=== PATIENT | male | born 1970 | race Caucasian/White ===

== ENCOUNTER 2023-05-01 18:09 | Inpatient (IN) | payer OTHER, SELFPAY ==
--- NOTE | ~2023-05-01 | CT_ITS ---
EXAMINATION: CT femur LT w IV con CLINICAL INFORMATION: Left leg infection. Rule out abscess. COMPARISON: None. TECHNIQUE: Multidetector volumetric imaging of the left femur performed after administration of 85 mL of Omnipaque 350 IV contrast. Coronal and sagittal reformatted images are obtained and reviewed. This CT examination was performed using dose optimization techniques as appropriate, variously including the following: *Automated exposure control *Adjustment of mA and/or kV according to patient size (this includes techniques or standardized protocols for targeted exams where dose is matched to indication/reason for exam; i.e. extremities or head) *Use of iterative reconstruction technique DLP: 406 mGy-cm FINDINGS: There is no fracture. Alignment maintained at the hip and knee. No cortical disruption. No osseous lesion. No osseous erosion. There is superficial edema in the posterior subcutaneous fat spanning from the mid thigh to the level of the knee. No fluid collection. There is mild skin thickening. No radiopaque foreign body. There is no deep extension of edema into the musculature. No soft tissue gas. No joint effusion at the knee or hip. The visualized intrapelvic structures show no acute abnormality. Colonic diverticulosis without diverticulitis. No abdominal wall hernia. No lymphadenopathy. CT/CT femur LT w IV con IMPRESSION: Superficial edema in the posterior subcutaneous fat spanning from the mid thigh to the level of the knee. No fluid collection. No soft tissue gas.
[2023-05-01 18:17] VITALS: BP 126/87; PULSE 95; RESP 18; TEMP 36.1; O2SAT 96; BMI 31.9
--- NOTE | 2023-05-01 18:17 | ED_ITS ---
HPI - General Adult General Chief complaint: Skin/Abscess/Foreign Body Stated complaint: Bug bite left leg Infected? Time Seen by Provider: 05/01/23 21:30 Source: patient Mode of arrival: ambulatory Limitations: no limitations History of Present Illness HPI narrative: Patient presents with left posterior thigh pain. Patient an insect bite a few days ago. Went to urgent care the following day was prescribed cephalexin. Patient is in had increasing redness, swelling, pain and feels like there has been drainage. Denies any fevers or chills. No nausea vomiting. The pain is moderate nature. Worse with palpation. The pain does not radiate. He is not sure what has been draining entirely but feels wet it substance going down his leg. Patient denies any other injuries, evidence of infection. Patient has been compliant with his medications. Patient denies history of diabetes. Related Data Home Medications Medication Instructions Recorded Confirmed buprenorphine 8 mg-naloxone 2 mg 10 mg sublingual BID 05/02/23 05/02/23 sublingual film (Suboxone) cephalexin 500 mg capsule 500 mg PO TID 05/02/23 05/02/23 lorazepam 1 mg tablet 1 mg PO DAILY PRN Anxiety 05/02/23 05/02/23 quetiapine 100 mg tablet 300 mg PO BEDTIME 05/02/23 05/02/23 Allergies Allergy/AdvReac Type Severity Reaction Status Date / Time No Known Allergies Allergy Verified 05/01/23 18:16 Review of Systems Review of Systems: CONSTITUTIONAL: Denies weight loss, fever and chills. HEENT: Denies changes in vision and hearing. RESPIRATORY: Denies SOB and cough. CV: Denies palpitations no CP. GI: Denies abdominal pain, nausea, vomiting and diarrhea. : Denies dysuria and urinary frequency. MSK: Denies myalgia and joint pain. SKIN: Denies rash and pruritus. NEUROLOGICAL: Denies headache and syncope. PSYCHIATRIC: Denies recent changes in mood. Denies anxiety and depression. All other ROS are negative unless in HPI PMFSH Past Medical History Medical History Mood disorder Opioid use Social History Social History Alcohol intake: never Patient Tobacco Use Status: Former Tobacco user Smoked in Last 30 Days: No Use of substances other than those prescribed or required for medical reasons: No Have you been hit, kicked, punched, or otherwise hurt by someone within the past year? If so, by whom?: No Is there a partner from a previous relationship who is making you feel unsafe now?: No Are you made to feel afraid or neglected: No Advance Directives: No Advance Directives Information Provided: No Do you have thoughts of harming others: None Do you have a plan to hurt others: No Plan Recently lost weight without trying: No Nutrition Risks: No Nutritional Risk Physical Exam ED Vital Signs: Vital Signs - 24 hr 05/01/23 18:17 05/01/23 21:12 Temperature 96.9 F 98.1 F Pulse Rate 95 80 Respiratory Rate 18 18 Blood Pressure 126/87 114/71 Pulse Oximetry 96 99 Oxygen Delivery Method Room Air Room Air BMI result Body Mass Index 31.9 GEN: Well developed, no acute distress, alert, oriented HEENT: Normocephalic, atraumatic, normal external ears, nose appears normal, no oropharyngeal edema or exudates Eyes: Normal to appearance Neck: Supple, no lymphadenopathy Respiratory: Talks in complete sentences, no respiratory distress, clear to auscultation bilaterally Cardiovascular: Regular rate and rhythm, no murmurs rubs or gallops Abdomen: Soft, nontender, nondistended, no guarding, no rebound Back: No CVA tenderness Extremities: No clubbing cyanosis or edema Neurologic: No focal neurologic deficits, cranial nerves 2-12 intact, strength is 5/5 bilaterally Skin: No rash, cellulitic changes the posterior leg, indurated, evidence of drainage with skin ulceration. No definitive abscess appreciated, no fluctuance surfaces. Course Course Course Narrative: This is a rapid medical exam: Additional HPI, ROS, PE not included below will be deferred to primary provider. Patient is a 53-year-old male presenting to the emergency department with worsening cellulitis to his left posterior upper leg. States he noted an area which he believed to be a bug bite on Friday. Was seen at urgent care Friday and started on Keflex 500mg TID x 10 days but states symptoms have worsened instead of improved. Denies fevers but states I just don't feel right. Patient has significant erythema to left posterior upper leg not fully visualized in triage due to privacy concerns. Patient reports area was draining dark colored fluid today. Plan: labs including cultures and lactic Reevaluation(s) Reevaluation #1: Dr. Israel aware of patient's impending admission. Time: 22:06 Reevaluation #2: Dr. Tobin to assume care pending CT resuls Time: 22:07 Medications Administered Generic Name Dose Route Start Last Admin Trade Name Freq PRN Reason Stop Dose Admin Acetaminophen 650 mg 05/01/23 22:32 05/01/23 23:59 Acetaminophen 325 Mg Tablet PO 650 mg Q6H PRN Administration Pain, Mild (Pain Scale 1-3) Buprenorphine/Naloxone 1 film 05/02/23 11:30 05/02/23 11:25 Buprenorphine/Naloxone 8/2 Mg Film SUBLINGUAL 1 film BID SARAI Administration Enoxaparin Sodium 40 mg 05/01/23 22:45 05/01/23 23:58 Enoxaparin Sodium 40 Mg/0.4 Ml Syringe SUBCUT 40 mg Q24H SARAI Administration Vancomycin HCl 1,250 mg/ 250 mls @ 166.667 mls/hr 05/02/23 10:00 05/02/23 12:25 Sodium Chloride IV Infused Q12H SARAI Infusion Lorazepam 1 mg 05/02/23 11:19 05/02/23 11:37 Lorazepam 1 Mg Tablet PO 1 mg DAILY PRN Administration Anxiety Nicotine 14 mg 05/02/23 13:30 05/02/23 14:22 Nicotine 14 Mg Patch.[id number] TRANSDERMA Not Given DAILY SARAI Sodium Chloride 3 ml 05/02/23 00:00 05/02/23 10:54 0.9 % Sodium Chloride Flush 3 Ml Syringe IVFLUSH Not Given QSHIFT SARAI Discontinued Medications Generic Name Dose Route Start Last Admin Trade Name Freq PRN Reason Stop Dose Admin Piperacillin Sod/Tazobactam 50 mls @ 100 mls/hr 05/01/23 21:26 05/02/23 09:09 Sod 3.375 gm/ Sodium Chloride IV 05/01/23 21:55 Infused ONCE ONE Infusion Vancomycin HCl 2,000 mg in 500 mls @ 250 mls/hr 05/01/23 21:31 05/02/23 09:09 Vancomycin/Ns IV 05/01/23 23:30 Infused ONCE ONE Infusion Iohexol 100 ml 05/01/23 22:00 05/01/23 22:01 Iohexol 350 Mg/Ml 100 Ml Infus..Btl IV 05/01/23 22:01 85 ml ONCE ONE Administration Medical Decision Making Medical Decision Making [facility] Narrative: 53-year-old male presents with cellulitis and possible abscess versus early phlegmonous changes the posterior leg. Patient has been on 2 days antibiotics. However, the symptoms are getting significantly worse. Has no fevers or chills. Doubt sepsis. He has no evidence of end-organ damage. He is not tachycardic. Will provide patient with Zosyn and vancomycin to broaden his antibiotic coverage. Differential diagnosis includes cellulitis, abscess, phlegmon. Patient will need a CT scan of the lower extremity to rule out abscess and potentially drainable fluid collection. Patient understands that he will need to be admitted for failure to a respond to outpatient medications. Differential Diagnosis Differential Diagnoses: The differential diagnosis associated with the presentation includes (See above) Admission/Observation Consideration of admission/observation: Escalation of care including admission/observation considered Consult Healthcare Provider Management of the patient was discussed with: Hospitalist Lab Data [facility] Lab Attestation statement: I reviewed the patient's lab results. 05/01/23 18:35 05/01/23 18:35 Labs: Lab Results 05/01/23 05/01/23 05/01/23 Range/Units 18:35 18:35 18:35 WBC 11.2 H (4.8-10.8) X10*3/uL RBC 4.18 L (4.60-5.80) X10*6/uL Hgb 12.4 L (14.0-18.0) g/dl Hct 36.6 L (42.0-52.0) % MCV 87.6 (80.0-98.0) fL MCH 29.7 (27.0-33.0) pg MCHC 33.9 (31.0-36.0) g/dl RDW 12.5 (11.0-16.0) % Plt Count 292 (160-400) X10*3/uL MPV 11.1 (9.4-12.4) fL Immature Gran % (Auto) 0.6 H (0.0-0.4) % Neut % (Auto) 77.0 H (45-73) % Lymph % (Auto) 14.4 L (20-40) % [place] % (Auto) 7.1 (2-11) % Eos % (Auto) 0.6 (0-4) % Baso % (Auto) 0.3 (0-2) % Lymph # (Auto) 1.6 (1.2-4.9) X10*3/uL [place] # (Auto) 0.8 (0.1-1.2) X10*3/uL Eos # (Auto) 0.1 (0.0-0.4) X10*3/uL Baso # (Auto) 0.0 (0.0-0.2) X10*3/uL Abs Immat Gran (auto) 0.07 H (0.00-0.03) X10*3/uL Absolute Neuts (auto) 8.6 H (2.0-8.3) x10*3/uL Absolute Nucleated RBC 0.000 (0.0-0.012) X10*3/uL Nucleated RBC % (auto) 0.0 (0.0-0.2) /100WBC Sodium 140 (135-145) mmol/L Potassium 4.2 (3.3-5.1) mmol/L Chloride 101 (96-108) mmol/L Carbon Dioxide 25 (22-29) mmol/L Anion Gap 18 (12-20) BUN 13 (9-16) mg/dL Creatinine 0.89 (0.5-1.4) mg/dL Estim Creat Clear Calc 123.8 Estimated GFR > 60 Random Glucose 103 (60-115) mg/dL Lactic Acid 0.9 (0.5-2.0) mmol/L Calcium 9.6 (8.4-10.2) mg/dL Total Bilirubin 0.3 (0.0-1.0) mg/dL AST 31 (5-37) U/L ALT 79 H (0-40) U/L Alkaline Phosphatase 148 H (39-117) U/L Total Protein 8.3 H (6.5-8.0) g/dL Albumin 4.5 (3.5-5.0) g/dL Independent Interpretation I performed an independent interpretation of an: CT Scan Radiology Impression Discussion of test interpretation with radiology: I have reviewed the radiologist's reading. Prescription Management I considered prescription management with: Pain Medication and Antibiotic Discharge Plan Discharge Clinical Impression: Cellulitis Patient Disposition: Admitted As Inpatient Interventions: Admission Worksheet (ED) Last Done: 05/02/23 11:25 Discharge Date/Time: 05/02/23 11:26
[2023-05-01 18:40] LABS: MANUAL DIFF FLAG NO
[2023-05-01 18:43] LABS: Basophils Percent Auto 0.3 % (0-2); Eosinophils Absolute Auto 0.1 X10*3/uL (0.0-0.4); Eosinophils Percent Auto 0.6 % (0-4); Hematocrit 36.6 % (42.0-52.0); Hemoglobin 12.4 g/dl (14.0-18.0); Imm Gran Abs Auto 0.07 X10*3/uL (0.00-0.03); Imm Gran Pct Auto 0.6 % (0.0-0.4); Lymphocytes Absolute Auto 1.6 X10*3/uL (1.2-4.9); Lymphocytes Percent Auto 14.4 % (20-40); Mean Corpuscular HGB Conc 33.9 g/dl (31.0-36.0); Mean Corpuscular Hemoglobin 29.7 pg (27.0-33.0); Mean Corpuscular Volume 87.6 fL (80.0-98.0); Mean Platelet Volume 11.1 fL (9.4-12.4); Monocytes Absolute Auto 0.8 X10*3/uL (0.1-1.2); Monocytes Percent Auto 7.1 % (2-11); Neutrophils Absolute Auto 8.6 x10*3/uL (2.0-8.3); Platelet Count 292 X10*3/uL (160-400); Red Blood Count 4.18 X10*6/uL (4.60-5.80); Red Cell Distribution Width 12.5 % (11.0-16.0); White Blood Count 11.2 X10*3/uL (4.8-10.8)
[2023-05-01 18:55] LABS: Lactic Acid 0.9 mmol/L (0.5-2.0)
[2023-05-01 19:00] LABS: Alanine Aminotransferase 79 U/L (0-40); Albumin Level 4.5 g/dL (3.5-5.0); Alkaline Phosphatase 148 U/L (39-117); Anion Gap 18 (12-20); Aspartate Amino Transferase 31 U/L (5-37); Bilirubin Total 0.3 mg/dL (0.0-1.0); Blood Urea Nitrogen 13 mg/dL (9-16); Calcium 9.6 mg/dL (8.4-10.2); Carbon Dioxide 25 mmol/L (22-29); Chloride 101 mmol/L (96-108); Creatinine Clr Calc Pharmacy 123.8; Estimated Glomerular Filt Rate > 60; Glucose Random 103 mg/dL (60-115); Potassium 4.2 mmol/L (3.3-5.1); Sodium 140 mmol/L (135-145); Total Protein 8.3 g/dL (6.5-8.0)
[2023-05-01 21:12] VITALS: BP 114/71; PULSE 80; RESP 18; TEMP 36.7; O2SAT 99
[2023-05-01] MEDS: Piperacillin Sodium/Tazobactam 3.375 GM in 0.9 % Sodium Chloride 50 ML IV (21:39)
[2023-05-01] MEDS: iohexoL 350 MG/ML 100 ML INFUS..BTL IV (22:01)
[2023-05-01] MEDS: vancomycin/NS 2,000 MG/500 ML PLAST..BAG 250 MG IV (22:26)
--- NOTE | 2023-05-01 22:33 | PM.IMHP ---
History of Present Illness Date of Service: 05/01/23 Chief Complaint: Leg infection This is a 53-year-old male with pertinent history of opioid use disorder on Suboxone, mood disorder who presents to the emergency department for evaluation of left lower extremity swelling, redness and pain. Patient states he 1st noticed 3 days prior to presentation. It was a bump that started as an insect bite and was very itchy located in the posterior aspect of his left leg. Patient scratched and the redness, swelling progressed. Also noticed drainage. Patient was started on Keflex 2 days prior to presentation. He states that the antibiotic is not helping and the infection is spreading. Denies fever, chills, chest discomfort, palpitations, shortness of breath, abdominal pain, changes in urinary or bowel habits. In the emergency department, imaging negative for fluid collection Review of Systems Constitutional: Constitutional: Reports no additional constitutional complaints Cardiovascular: Cardiovascular: Reports no additional cardiovascular complaints Respiratory: Respiratory: Reports no additional respiratory complaints Gastrointestinal: Gastrointestinal: Reports no additional gastrointestinal complaints Genitourinary: Genitourinary: Reports no additional male genitourinary complaints [facility] Medical History Mood disorder Opioid use Pertinent family history: No family history of early CAD Social History Alcohol intake: never Smoked in Last 30 Days: No Use of substances other than those prescribed or required for medical reasons: No Advance Directives: No Advance Directives Information Provided: No Meds Allergies Allergy/AdvReac Type Severity Reaction Status Date / Time No Known Allergies Allergy Verified 05/01/23 18:16 Active Medications: Current Medications Vancomycin HCl (Vancomycin/Ns) 2,000 mg in 500 mls @ 250 mls/hr IV ONCE ONE Stop: 05/01/23 23:30 Last Admin: 05/01/23 22:26 Dose: 250 mls/hr Pharmacy Consult (Consult Rx Perform Med Rec) 1 each MISCELLANE ONCE PRN PRN Reason: Consult order Pharmacy Consult (Consult Rx Perform Med Rec) 1 each MISCELLANE ONCE PRN PRN Reason: Consult order Physical Exam Vital Signs and Narrative: Vital Signs: Last Vital Signs Temp 98.1 F 05/01/23 21:12 Pulse 80 05/01/23 21:12 Resp 18 05/01/23 21:12 BP 114/71 05/01/23 21:12 Pulse Ox 99 05/01/23 21:12 O2 Del Method Room Air 05/01/23 21:12 BMI result Body Mass Index 31.9 Middle-aged male lying in bed in no distress Neck supple, no JVD Regular rate and rhythm, S1-S2 heard Regular breath sounds bilaterally, no wheezing or crackles appreciated Abdomen soft nontender, no guarding, no rigidity Patient is awake, alert and oriented to self, place, time and person ; no focal motor deficit Extremity: Erythema, swelling, tenderness present in the posterior aspect of left leg with serosanguineous drainage Psych: Normal mood No pedal edema Results Labs 05/01/23 18:35 05/01/23 18:35 Labs: Laboratory Results - last 24 hr 05/01/23 05/01/23 05/01/23 18:35 18:35 18:35 MCV 87.6 MCH 29.7 MCHC 33.9 RDW 12.5 Plt Count 292 MPV 11.1 Immature Gran % (Auto) 0.6 H Neut % (Auto) 77.0 H Lymph % (Auto) 14.4 L [place] % (Auto) 7.1 Eos % (Auto) 0.6 Baso % (Auto) 0.3 Lymph # (Auto) 1.6 [place] # (Auto) 0.8 Eos # (Auto) 0.1 Baso # (Auto) 0.0 Abs Immat Gran (auto) 0.07 H Absolute Neuts (auto) 8.6 H Absolute Nucleated RBC 0.000 Nucleated RBC % (auto) 0.0 Anion Gap 18 Estim Creat Clear Calc 123.8 Estimated GFR > 60 Random Glucose 103 Lactic Acid 0.9 Calcium 9.6 Total Bilirubin 0.3 AST 31 ALT 79 H Alkaline Phosphatase 148 H Total Protein 8.3 H Albumin 4.5 Imaging Radiologist's Impressions: Impressions Femur CT 05/01/23 22:10 IMPRESSION: Superficial edema in the posterior subcutaneous fat spanning from the mid thigh to the level of the knee. No fluid collection. No soft tissue gas. Assessment and Plan (1) Cellulitis: Status: Acute Plan This is a 53-year-old male with pertinent history of opioid use disorder on Suboxone, mood disorder who presents to the emergency department for evaluation of left lower extremity swelling, redness and pain. #. Left lower extremity purulent cellulitis. Will admit patient and initiate empiric IV antibiotics as patient failed outpatient p.o. antibiotics. Monitor for improvement. Blood culture obtained. No fluid collection or concern for abscess on imaging #. Opioid use disorder on Suboxone #. Mood disorder. Continue Seroquel Med rec pending DVT prophylaxis: Lovenox Full code Admit as inpatient and will require two night minimum hospital stay for IV antibiotics Time Spent With Patient Time: Total time managing care of this patient today ____ minutes. Quality Stroke Does the patient have a stroke diagnosis?: No VTE Prior VTE?: No VTE Risk Level:: Medical - moderate - high VTE Device Contraindication: Treatment Not Indicated VTE Drug Contraindication: N/A - Med Ordered
--- NOTE | 2023-05-01 22:42 | PHA.PROG ---
Admission Date/Time: Indication:skin Weight in k.6 kg Adjusted body weight in K.2 [place] body weight in K.6 Obesity Dosing Indication % IBW: Obese Serum Creatinine - Last 168 Hours 05/01/23 18:35 Creatinine 0.89 Estimated CrCl and GFR - Last 168 Hours 05/01/23 18:35 Estim Creat Clear Calc 123.8 Estimated GFR > 60 Vancomycin Loading Dose: 2000mg x 1 Current Vancomycin Dosing Regimen: 1250 mg Q12H Vancomycin Monitoring using AUC goal of 400 - 600 range with trough as surrogate marker: 466 Date and Time for next Vancomycin Level to be drawn: 05/03 @0800 Pharmacist Comments on Vancomycin Plan: Vancomycin dosing will take advantage of [employer] as a clinical decision support tool that uses Bayesian modeling to calculate individual patient's pharmacokinetic parameters and forecast the patient's drug concentration time course with the target goal AUC 24 range of 400 - 600 mg/L/hr.
[2023-05-01] MEDS: Enoxaparin Sodium 40 MG/0.4 ML SYRINGE SUBCUT (23:58)
[2023-05-01] MEDS: Acetaminophen 325 MG TABLET 650 MG PO (23:59)
[2023-05-02 00:22] VITALS: BP 109/63; PULSE 79; RESP 17; TEMP 36.8; O2SAT 95
[2023-05-02 02:38] VITALS: BP 101/59; PULSE 71; RESP 17; TEMP 36.4; O2SAT 96
[2023-05-02] MEDS: 0.9 % Sodium Chloride Flush 3 ML SYRINGE IVFLUSH ×3 (03:30→22:03)
--- NOTE | 2023-05-02 03:38 | MHC.EDTECH ---
This tech assumed care of pt at 0300AM,hourly rounds completed and belongings list done,attempted to place clothes in bag pt refused and wants them in bed. RN aware
[2023-05-02 05:38] LABS: MANUAL DIFF FLAG NO
[2023-05-02 05:42] LABS: Basophils Percent Auto 0.3 % (0-2); Eosinophils Absolute Auto 0.3 X10*3/uL (0.0-0.4); Eosinophils Percent Auto 3.4 % (0-4); Hematocrit 32.3 % (42.0-52.0); Hemoglobin 10.8 g/dl (14.0-18.0); Imm Gran Abs Auto 0.04 X10*3/uL (0.00-0.03); Imm Gran Pct Auto 0.5 % (0.0-0.4); Lymphocytes Absolute Auto 2.2 X10*3/uL (1.2-4.9); Mean Corpuscular HGB Conc 33.4 g/dl (31.0-36.0); Mean Corpuscular Hemoglobin 29.5 pg (27.0-33.0); Mean Corpuscular Volume 88.3 fL (80.0-98.0); Mean Platelet Volume 11.1 fL (9.4-12.4); Monocytes Absolute Auto 0.8 X10*3/uL (0.1-1.2); Monocytes Percent Auto 10.6 % (2-11); Neutrophils Absolute Auto 4.2 x10*3/uL (2.0-8.3); Neutrophils Percent Auto 56.2 % (45-73); Platelet Count 246 X10*3/uL (160-400); Red Blood Count 3.66 X10*6/uL (4.60-5.80); Red Cell Distribution Width 12.6 % (11.0-16.0); White Blood Count 7.6 X10*3/uL (4.8-10.8)
[2023-05-02 06:11] LABS: Anion Gap 17 (12-20); Blood Urea Nitrogen 12 mg/dL (9-16); Calcium 8.6 mg/dL (8.4-10.2); Carbon Dioxide 25 mmol/L (22-29); Chloride 103 mmol/L (96-108); Creatinine Clr Calc Pharmacy 134.4; Estimated Glomerular Filt Rate > 60; Glucose Random 123 mg/dL (60-115); Potassium 3.5 mmol/L (3.3-5.1); Sodium 141 mmol/L (135-145)
[2023-05-02 06:31] VITALS: BP 109/58; PULSE 64; RESP 18; TEMP 36.6; O2SAT 98
--- NOTE | 2023-05-02 06:31 | MHC.EDTECH ---
Hourly rounds completed,vitals taken and pt is resting comfortably at this time and call barriga within reach.
--- NOTE | 2023-05-02 07:19 | PC.NURSE ---
Resumed care of patient, he is currently sleeping. No distress noted at this time. breakfast at bedside, awaiting bed placement upstairs
--- NOTE | 2023-05-02 08:26 | PHA.MEDREC ---
Pharmacy Consult ? Medication Reconciliation Pharmacy has completed the medication reconciliation. Pt was able to list medications without being lead. Matched claim history.
--- NOTE | 2023-05-02 10:36 | PC.NURSE ---
port given to M3 RN
[2023-05-02] MEDS: vancomycin HCL 1,250 MG in 0.9 % Sodium Chloride 250 ML 166.67 MG IV ×2 (10:46→22:02)
--- NOTE | 2023-05-02 10:47 | PC.NURSE ---
port given to m3 RN, pt to be transported up to [facility] transport
--- NOTE | 2023-05-02 11:20 | HO.PM.IMPN ---
Subjective Subjective Date of Service: 05/02/23 Physical Exam Vital Signs: Vital Signs: Last Vital Signs Temp 97.8 F 05/02/23 06:31 Pulse 64 05/02/23 06:31 Resp 18 05/02/23 06:31 BP 109/58 L 05/02/23 06:31 Pulse Ox 98 05/02/23 06:31 O2 Del Method Room Air 05/02/23 06:31 BMI result Body Mass Index 31.9 Objective Data Active Medications Acetaminophen (Acetaminophen 325 Mg Tablet) 650 mg PO Q6H PRN PRN Reason: Pain, Mild (Pain Scale 1-3) Last Admin: 05/01/23 23:59 Dose: 650 mg Documented By: AUBREY Enoxaparin Sodium (Enoxaparin Sodium 40 Mg/0.4 Ml Syringe) 40 mg SUBCUT Q24H [facility] Last Admin: 05/01/23 23:58 Dose: 40 mg Documented By: AUBREY Vancomycin HCl 1,250 mg/ (Sodium Chloride) 250 mls @ 166.667 mls/hr IV Q12H [facility] Last Admin: 05/02/23 10:46 Dose: 166.67 mls/hr Documented By: ALYSE Melatonin (Melatonin 3 Mg Tablet) 6 mg PO BEDTIME PRN PRN Reason: Insomnia Ondansetron HCl (Ondansetron Hcl 4 Mg/2 Ml Vial) 4 mg IVPUSH Q8H PRN PRN Reason: Nausea and Vomiting Pharmacy Consult (Consult Rx Perform Med Rec) 1 each MISCELLANE ONCE PRN PRN Reason: Consult order Pharmacy Consult (Consult Rx Vancomycin Dosing) 1 each MISCELLANE DAILY PRN PRN Reason: Consult order Sodium Chloride (0.9 % Sodium Chloride Flush 3 Ml Syringe) 3 ml IVFLUSH QSHIFT [facility] Last Admin: 05/02/23 10:54 Dose: Not Given Documented By: ASHLEY Non-Admin Reason: See Note Labs 05/02/23 05:13 05/02/23 05:13 Labs: Laboratory Results - last 24 hr 05/01/23 05/01/23 05/01/23 18:35 18:35 18:35 MCV 87.6 MCH 29.7 MCHC 33.9 RDW 12.5 Plt Count 292 MPV 11.1 Immature Gran % (Auto) 0.6 H Neut % (Auto) 77.0 H Lymph % (Auto) 14.4 L [place] % (Auto) 7.1 Eos % (Auto) 0.6 Baso % (Auto) 0.3 Lymph # (Auto) 1.6 [place] # (Auto) 0.8 Eos # (Auto) 0.1 Baso # (Auto) 0.0 Abs Immat Gran (auto) 0.07 H Absolute Neuts (auto) 8.6 H Absolute Nucleated RBC 0.000 Nucleated RBC % (auto) 0.0 Anion Gap 18 Estim Creat Clear Calc 123.8 Estimated GFR > 60 Random Glucose 103 Lactic Acid 0.9 Calcium 9.6 Total Bilirubin 0.3 AST 31 ALT 79 H Alkaline Phosphatase 148 H Total Protein 8.3 H Albumin 4.5 05/02/23 05/02/23 05/02/23 05:13 05:13 05:13 MCV 88.3 MCH 29.5 MCHC 33.4 RDW 12.6 Plt Count 246 MPV 11.1 Immature Gran % (Auto) 0.5 H Neut % (Auto) 56.2 Lymph % (Auto) 29.0 [place] % (Auto) 10.6 Eos % (Auto) 3.4 Baso % (Auto) 0.3 Lymph # (Auto) 2.2 [place] # (Auto) 0.8 Eos # (Auto) 0.3 Baso # (Auto) 0.0 Abs Immat Gran (auto) 0.04 H Absolute Neuts (auto) 4.2 Absolute Nucleated RBC 0.000 Nucleated RBC % (auto) 0.0 Anion Gap 17 Estim Creat Clear Calc 134.4 Cancelled Estimated GFR > 60 Cancelled Random Glucose 123 H Lactic Acid Calcium 8.6 D Total Bilirubin AST ALT Alkaline Phosphatase Total Protein Albumin Assessment and Plan (1) Opioid use: Status: Acute (2) Mood disorder: Status: Acute (3) Cellulitis: Status: Acute Plan This is a 53-year-old male with pertinent history of opioid use disorder on Suboxone, mood disorder who presents to the emergency department for evaluation of left lower extremity swelling, redness and pain. #.? Left lower extremity purulent cellulitis with abscess, likely staph Surgery consult for I and D. continue Vanco #.? Opioid use disorder on Suboxone #.? Mood disorder.? Continue Seroquel DVT prophylaxis:? Lovenox Full code Need for inpatient: IV Abx for abscess and cellulitis Time Spent With Patient Time: Total time managing care of this patient today ____ minutes. Quality Stroke Does the patient have a stroke diagnosis?: No VTE Prior VTE?: No VTE Risk Level:: Medical - moderate - high VTE Device Contraindication: Treatment Not Indicated VTE Drug Contraindication: N/A - Med Ordered
[2023-05-02] MEDS: Buprenorphine/Naloxone 8/2 mg FILM 1 FILM SUBLINGUAL ×2 (11:25→20:03)
[2023-05-02] MEDS: LORazepam 1 MG TABLET PO ×2 (11:37→20:33)
--- NOTE | 2023-05-02 12:27 | P.CONGS_ITS ---
History of Present Illness Consult details Consult date: 05/02/23 Requesting physician: Arsh Null Narrative: 53-year-old male patient presenting to the emergency department with a black skin lesion located in his left posterior thigh. This began as an area of redness approximately 3 days ago of uncertain etiology. 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 He was evaluated at a walk-in clinic and started on antibiotics. He reports the pain and redness increased in severity since then and subsequently returned to the emergency department for further evaluation. He has been admitted to the hospitalist service for further management. A CT of the left leg indicates area of inflammation in the subcutaneous tissue but no definite fluid collection. Review of Systems Review of Systems: Yes all other systems are reviewed and are negative Integumentary/Breasts: Skin/Breast: Reports as per HPI, Reports swelling, Reports skin ulcer and Reports sores PMFSH Past Medical History Medical History Mood disorder Opioid use Social History Social History Alcohol intake: never Patient Tobacco Use Status: Former Tobacco user Smoked in Last 30 Days: No Use of substances other than those prescribed or required for medical reasons: No Have you been hit, kicked, punched, or otherwise hurt by someone within the past year? If so, by whom?: No Is there a partner from a previous relationship who is making you feel unsafe now?: No Are you made to feel afraid or neglected: No Advance Directives: No Advance Directives Information Provided: No Do you have thoughts of harming others: None Do you have a plan to hurt others: No Plan Recently lost weight without trying: No Nutrition Risks: No Nutritional Risk Meds Allergies Allergy/AdvReac Type Severity Reaction Status Date / Time No Known Allergies Allergy Verified 05/01/23 18:16 Active Medications: Current Medications Acetaminophen (Acetaminophen 325 Mg Tablet) 650 mg PO Q6H PRN PRN Reason: Pain, Mild (Pain Scale 1-3) Last Admin: 05/01/23 23:59 Dose: 650 mg Buprenorphine/Naloxone (Buprenorphine/Naloxone 8/2 Mg Film) 1 film SUBLINGUAL BID SARAI Last Admin: 05/02/23 11:25 Dose: 1 film Enoxaparin Sodium (Enoxaparin Sodium 40 Mg/0.4 Ml Syringe) 40 mg SUBCUT Q24H [facility] Last Admin: 05/01/23 23:58 Dose: 40 mg Vancomycin HCl 1,250 mg/ (Sodium Chloride) 250 mls @ 166.667 mls/hr IV Q12H [facility] Last Infusion: 05/02/23 12:25 Dose: Infused Lorazepam (Lorazepam 1 Mg Tablet) 1 mg PO DAILY PRN PRN Reason: Anxiety Last Admin: 05/02/23 11:37 Dose: 1 mg Melatonin (Melatonin 3 Mg Tablet) 6 mg PO BEDTIME PRN PRN Reason: Insomnia Ondansetron HCl (Ondansetron Hcl 4 Mg/2 Ml Vial) 4 mg IVPUSH Q8H PRN PRN Reason: Nausea and Vomiting Pharmacy Consult (Consult Rx Perform Med Rec) 1 each MISCELLANE ONCE PRN PRN Reason: Consult order Pharmacy Consult (Consult Rx Vancomycin Dosing) 1 each MISCELLANE DAILY PRN PRN Reason: Consult order Quetiapine Fumarate (Quetiapine Fumarate 300 Mg Tablet) 300 mg PO BEDTIME [facility] Sodium Chloride (0.9 % Sodium Chloride Flush 3 Ml Syringe) 3 ml IVFLUSH QSHIFT [facility] Last Admin: 05/02/23 10:54 Dose: Not Given Home Medications Medication Instructions Recorded Confirmed Last Taken Type buprenorphine 8 mg-naloxone 2 mg 10 mg sublingual BID 05/02/23 05/02/23 05/01/23 History sublingual film (Suboxone) cephalexin 500 mg capsule 500 mg PO TID 05/02/23 05/02/23 05/01/23 History lorazepam 1 mg tablet 1 mg PO DAILY PRN Anxiety 05/02/23 05/02/23 05/01/23 History quetiapine 100 mg tablet 300 mg PO BEDTIME 05/02/23 05/02/23 04/30/23 History Physical Exam Vital Signs: Vital Signs: Last Vital Signs Temp 97.8 F 05/02/23 06:31 Pulse 64 05/02/23 06:31 Resp 18 05/02/23 06:31 BP 109/58 L 05/02/23 06:31 Pulse Ox 98 05/02/23 06:31 O2 Del Method Room Air 05/02/23 06:31 BMI result Body Mass Index 31.9 Const: General: cooperative and no acute distress Nutritional Appearance: well nourished Orientation/consciousness: patient oriented x3 Limitations: no limitations HEENT: Head: Yes normocephalic and Yes atraumatic Ears: hearing grossly normal bilaterally Resp: Effort & Inspection: normal respiratory effort, no audible wheezes, no cough and no respiratory distress Cardio: Jugular venous distension: no JVD GI: Inspection: Yes normal to inspection Skin: Other: Warm, dry, no rash Neuro: General: patient oriented x3 Extrem: Other: General: Yes no clubbing, cyanosis or edema Upper/lower leg/hip images: 1. 2 cm area of necrotic skin surrounded by a wider area of erythema, swelling, tenderness. Results Labs 05/02/23 05:13 05/02/23 05:13 Labs: Abnormal lab results 05/01/23 05/01/23 05/02/23 Range/Units 18:35 18:35 05:13 WBC 11.2 H (4.8-10.8) X10*3/uL RBC 4.18 L 3.66 L (4.60-5.80) X10*6/uL Hgb 12.4 L 10.8 L (14.0-18.0) g/dl Hct 36.6 L 32.3 L (42.0-52.0) % Immature Gran % (Auto) 0.6 H 0.5 H (0.0-0.4) % Neut % (Auto) 77.0 H (45-73) % Lymph % (Auto) 14.4 L (20-40) % Abs Immat Gran (auto) 0.07 H 0.04 H (0.00-0.03) X10*3/uL Absolute Neuts (auto) 8.6 H (2.0-8.3) x10*3/uL Random Glucose (60-115) mg/dL ALT 79 H (0-40) U/L Alkaline Phosphatase 148 H (39-117) U/L Total Protein 8.3 H (6.5-8.0) g/dL 05/02/23 Range/Units 05:13 WBC (4.8-10.8) X10*3/uL RBC (4.60-5.80) X10*6/uL Hgb (14.0-18.0) g/dl Hct (42.0-52.0) % Immature Gran % (Auto) (0.0-0.4) % Neut % (Auto) (45-73) % Lymph % (Auto) (20-40) % Abs Immat Gran (auto) (0.00-0.03) X10*3/uL Absolute Neuts (auto) (2.0-8.3) x10*3/uL Random Glucose 123 H (60-115) mg/dL ALT (0-40) U/L Alkaline Phosphatase (39-117) U/L Total Protein (6.5-8.0) g/dL Short CBC 05/01/23 05/02/23 Range/Units 18:35 05:13 WBC 11.2 H 7.6 (4.8-10.8) X10*3/uL Hgb 12.4 L 10.8 L (14.0-18.0) g/dl Hct 36.6 L 32.3 L (42.0-52.0) % Plt Count 292 246 (160-400) X10*3/uL BMP 05/01/23 05/02/23 05/02/23 18:35 05:13 05:13 Sodium 140 141 Potassium 4.2 3.5 Chloride 101 103 Carbon Dioxide 25 25 BUN 13 12 Creatinine 0.89 0.82 Cancelled Calcium 9.6 8.6 D Liver Function 05/01/23 Range/Units 18:35 Total Bilirubin 0.3 (0.0-1.0) mg/dL AST 31 (5-37) U/L ALT 79 H (0-40) U/L Alkaline Phosphatase 148 H (39-117) U/L Albumin 4.5 (3.5-5.0) g/dL All other labs normal. Assessment and Plan (1) Insect bite of left leg: Status: Acute Plan 53-year-old male patient presenting with a necrotic ulcer with surrounding erythema suggestive of an abscess in the posterior left thigh. On examination the patient has a 2 cm necrotic wound suggestive of a brown recluse spider bite. I recommended debridement of the necrotic skin and drainage of any underlying collection. For discussion of the procedure, risks and alternative, he consents to the debridement of the necrotic skin bite. This was performed at the bedside he tolerated this well. He will need daily dressing changes and follow-up in the office in approximately 1 week. Time Spent With Patient Time: Total time managing care of this patient today ____ minutes. Procedures Date of Service Date of Service: 05/02/23 Abscess I/D Consent for Procedure: Elective - informed consent obtained Site: lower extremity (Posterior left thigh) Side (if applicable): left Sedation/analgesia: none Anesthetic used: lidocaine 1% Technique: incised with #11 blade Amount of fluid (mL): 2 Irrigation: Yes Packing used?: plain
[2023-05-02 15:35] VITALS: BP 113/70; PULSE 78; RESP 16; TEMP 36.9; O2SAT 97
[2023-05-02 19:14] VITALS: BP 129/83; PULSE 70; RESP 18; TEMP 36.9; O2SAT 97
[2023-05-02] MEDS: Enoxaparin Sodium 40 MG/0.4 ML SYRINGE SUBCUT (22:02)
[2023-05-02] MEDS: QUEtiapine Fumarate 300 MG TABLET PO (22:02)
[2023-05-03 03:52] VITALS: BP 117/55; PULSE 66; RESP 18; TEMP 36; O2SAT 92
[2023-05-03 08:00] VITALS: BP 104/56; PULSE 71; RESP 18; TEMP 36.1; O2SAT 95
--- NOTE | 2023-05-03 08:22 | PM.DS ---
DS: Providers Provider Date of Service: 05/03/23 Date of admission: 05/01/23 22:32 Primary care physician: Unknown Physician Consults: 05/02/23 08:03 Consult to General Surgery Routine Consulting Provider: [facility] [place] General Surgeons Reason for consultation: Right thigh abscess need I and D Has provider been notified: No DS: Diagnosis Discharge Diagnosis (1) Insect bite of left leg: Status: Acute DS: Summary Hospital Course Hospital Course: Chief Complaint: Leg infection This is a 53-year-old male with pertinent history of opioid use disorder on Suboxone, mood disorder who presents to the emergency department for evaluation of left lower extremity swelling, redness and pain.? Patient states he 1st noticed 3 days prior to presentation.? It was a bump that started as an insect bite and was very itchy located in the posterior aspect of his left leg.? Patient scratched and the redness, swelling progressed.? Also noticed drainage.? Patient was started on Keflex 2 days prior to presentation.? He states that the antibiotic is not helping and the infection is spreading.? Denies fever, chills, chest discomfort, palpitations, shortness of breath, abdominal pain, changes in urinary or bowel habits. In the emergency department, imaging negative for fluid collectio hospital course: Presented with cellulitis of the left thigh area that appeared to have been and started with an insect bite of possibly a spider bite. He was initiated on Keflex 2 days prior to come in a bed with no significant improvement. Imaging of the area showed no abscess. He was given IV vancomycin, the area was incised and drained by surgery with some packing left in. Over the course of hospitalization the area of erythema has significantly improved, he has no fever. He will be discharged with oral doxycycline and Augmentin and to continue to watch the area and if not getting better she return to the emergency room. Time Spent with Patient Time attestation: Total time managing care of this patient today ____ minutes. Discharge coordination time: Greater than 30 minutes Quality: Safe Use of Opioids Does Pt have an Active Cancer Diagnosis on the Problem List?: No Quality: Stroke Does the patient have a stroke diagnosis?: No Physical Exam Vital Signs: Vital Signs: Last Vital Signs Temp 96.8 F 05/03/23 03:52 Pulse 66 05/03/23 03:52 Resp 18 05/03/23 03:52 BP 117/55 L 05/03/23 03:52 Pulse Ox 92 05/03/23 03:52 O2 Del Method Room Air 05/03/23 03:52 BMI result Body Mass Index 31.9 DS: Data Data Completed and Pending Labs on day of discharge: Preliminary micro results at discharge 05/01/23 18:35 Blood Culture - Preliminary Blood - Venous No growth after 24 hours. 05/01/23 18:35 Blood Culture - Preliminary Blood - Venous No growth after 24 hours. Discharge Plan Discharge Anticipated Discharge Date/Time: 05/03/23 13:53 Patient Disposition: Home, Self-Care Discharge Diagnosis: Cellulitis of left tigh Referrals: Physician,Unknown J [Physician] - 1 Week Discharge Medications: New doxycycline hyclate 100 mg tablet 100 mg PO BID 7 Days Qty: 14 0RF amoxicillin-pot clavulanate 875-125 mg tablet 1 tab PO BID Qty: 10 0RF Continued quetiapine 100 mg tablet 300 mg PO BEDTIME lorazepam 1 mg tablet 1 mg PO DAILY PRN (Reason: Anxiety) buprenorphine-naloxone [Suboxone] 8-2 mg film 10 mg sublingual BID Discontinued cephalexin 500 mg capsule 500 mg PO TID Discharge Orders: Discharge Order (Routine); Ordered 05/03/23 Ordered By: Arsh Null Diet: Advance to usual diet Activity on Discharge: As tolerated Stand Alone Forms: Patient Portal Discharge page Care Plan Goals: resolution of cellulitis Health Concerns: cellulitis possibly due to spider bite Plan of Treatment: take doxycycline and Augmentin as directed and follow up with your primary care doctor within a week. If the wound seemed to be worsening please come back to the emergency room. Assessment: As above Discharge Date/Time: 05/03/23 14:41
--- NOTE | 2023-05-03 08:28 | HO.PM.IMPN ---
Subjective Subjective Date of Service: 05/03/23 Interval History: Follow-up cellulitis of the left thigh, improving. Physical Exam Vital Signs: Vital Signs: Last Vital Signs Temp 97.0 F 05/03/23 08:00 Pulse 71 05/03/23 08:00 Resp 18 05/03/23 08:00 BP 104/56 L 05/03/23 08:00 Pulse Ox 95 05/03/23 08:00 O2 Del Method Room Air 05/03/23 08:00 BMI result Body Mass Index 31.9 Extrem: Other: Objective Data Active Medications Acetaminophen (Acetaminophen 325 Mg Tablet) 650 mg PO Q6H PRN PRN Reason: Pain, Mild (Pain Scale 1-3) Last Admin: 05/01/23 23:59 Dose: 650 mg Documented By: AUBREY Buprenorphine/Naloxone (Buprenorphine/Naloxone 8/2 Mg Film) 1 film SUBLINGUAL BID@0900,1800 [facility] Last Admin: 05/02/23 20:03 Dose: 1 film Documented By: GERARDO Enoxaparin Sodium (Enoxaparin Sodium 40 Mg/0.4 Ml Syringe) 40 mg SUBCUT Q24H [facility] Last Admin: 05/02/23 22:02 Dose: 40 mg Documented By: GERARDO Vancomycin HCl 1,250 mg/ (Sodium Chloride) 250 mls @ 166.667 mls/hr IV Q12H [facility] Last Infusion: 05/02/23 23:38 Dose: 0 mls/hr Documented By: GERARDO Lorazepam (Lorazepam 1 Mg Tablet) 1 mg PO DAILY PRN PRN Reason: Anxiety Last Admin: 05/02/23 11:37 Dose: 1 mg Documented By: ASHLEY Melatonin (Melatonin 3 Mg Tablet) 6 mg PO BEDTIME PRN PRN Reason: Insomnia Nicotine (Nicotine 14 Mg Patch.Td24) 14 mg TRANSDERMA DAILY [facility] Last Admin: 05/02/23 14:22 Dose: Not Given Documented By: ASHLEY Non-Admin Reason: Patient Refused Nicotine Polacrilex (Nicotine Polacrilex 2 Mg Gum) 2 mg BUCCAL Q2H PRN PRN Reason: Nicotine Cravings Ondansetron HCl (Ondansetron Hcl 4 Mg/2 Ml Vial) 4 mg IVPUSH Q8H PRN PRN Reason: Nausea and Vomiting Pharmacy Consult (Consult Rx Perform Med Rec) 1 each MISCELLANE ONCE PRN PRN Reason: Consult order Pharmacy Consult (Consult Rx Vancomycin Dosing) 1 each MISCELLANE DAILY PRN PRN Reason: Consult order Quetiapine Fumarate (Quetiapine Fumarate 300 Mg Tablet) 300 mg PO BEDTIME [facility] Last Admin: 05/02/23 22:02 Dose: 300 mg Documented By: GERARDO Sodium Chloride (0.9 % Sodium Chloride Flush 3 Ml Syringe) 3 ml IVFLUSH QSHIFT [facility] Last Admin: 05/02/23 22:03 Dose: 3 ml Documented By: GERARDO Labs 05/02/23 05:13 05/02/23 05:13 Microbiology Microbiology Results: Microbiology 05/01/23 18:35 Blood Culture - Preliminary Blood - Venous No growth after 24 hours. 05/01/23 18:35 Blood Culture - Preliminary Blood - Venous No growth after 24 hours. Assessment and Plan (1) Insect bite of left leg: Status: Acute (2) Cellulitis: Status: Acute Plan This is a 53-year-old male with pertinent history of opioid use disorder on Suboxone, mood disorder who presents to the emergency department for evaluation of left lower extremity swelling, redness and pain. #.? Left lower extremity purulent cellulitis with mild abscess, possible spider bite, improved, erythema much improved, area I and D, with no significant drainage. Change to PO Doxy+Augmentin and dc #.? Opioid use disorder on Suboxone #.? Mood disorder.? Continue Seroquel DVT prophylaxis:? Lovenox Full code Need for inpatient: IV Abx for abscess and cellulitis pam later today after eval by surgery Time Spent With Patient Time: Total time managing care of this patient today ____ minutes. Quality Stroke Does the patient have a stroke diagnosis?: No VTE Prior VTE?: No VTE Risk Level:: Medical - moderate - high VTE Device Contraindication: Treatment Not Indicated VTE Drug Contraindication: N/A - Med Ordered
[2023-05-03] MEDS: 0.9 % Sodium Chloride Flush 3 ML SYRINGE IVFLUSH (08:50)
[2023-05-03] MEDS: Buprenorphine/Naloxone 8/2 mg FILM 1 FILM SUBLINGUAL (08:52)
[2023-05-03] MEDS: LORazepam 1 MG TABLET PO (08:54)
[2023-05-03 09:12] LABS: Creatinine Clr Calc Pharmacy 128.2; Estimated Glomerular Filt Rate > 60
[2023-05-03] MEDS: vancomycin HCL 1,500 MG in 0.9 % Sodium Chloride 500 ML 333.33 MG IV (10:02)
--- NOTE | 2023-05-03 10:24 | PM.PNGS ---
Subjective Subjective Date of Service: 05/03/23 Interval history: Pod 1 following incision and drainage left posterior thigh insect bite. Patient reports feeling much improved this morning. Redness and pain have decreased significantly. Physical Exam Vital Signs: Vital Signs: Last Vital Signs Temp 97.0 F 05/03/23 08:00 Pulse 71 05/03/23 08:00 Resp 18 05/03/23 08:00 BP 104/56 L 05/03/23 08:00 Pulse Ox 95 05/03/23 08:00 O2 Del Method Room Air 05/03/23 08:00 BMI result Body Mass Index 31.9 Const: General: healthy appearing Nutritional Appearance: well nourished Orientation/consciousness: patient oriented x3 Limitations: no limitations Resp: Effort & Inspection: normal respiratory effort Neuro: General: patient oriented x3 Extrem: Other: Excision site is clean with decreased surrounding erythema and tenderness. No purulence discharge noted. Objective Data Active Medications Acetaminophen (Acetaminophen 325 Mg Tablet) 650 mg PO Q6H PRN PRN Reason: Pain, Mild (Pain Scale 1-3) Last Admin: 05/01/23 23:59 Dose: 650 mg Documented By: AUBREY Buprenorphine/Naloxone (Buprenorphine/Naloxone 8/2 Mg Film) 1 film SUBLINGUAL BID@0900,1800 [facility] Last Admin: 05/03/23 08:52 Dose: 1 film Documented By: WEST Enoxaparin Sodium (Enoxaparin Sodium 40 Mg/0.4 Ml Syringe) 40 mg SUBCUT Q24H [facility] Last Admin: 05/02/23 22:02 Dose: 40 mg Documented By: GERARDO Vancomycin HCl 1,500 mg/ (Sodium Chloride) 500 mls @ 333.333 mls/hr IV Q12H [facility] Last Admin: 05/03/23 10:02 Dose: 333.33 mls/hr Documented By: WEST Lorazepam (Lorazepam 1 Mg Tablet) 1 mg PO DAILY PRN PRN Reason: Anxiety Last Admin: 05/03/23 08:54 Dose: 1 mg Documented By: WEST Melatonin (Melatonin 3 Mg Tablet) 6 mg PO BEDTIME PRN PRN Reason: Insomnia Nicotine (Nicotine 14 Mg Patch.Td24) 14 mg TRANSDERMA DAILY [facility] Last Admin: 05/03/23 08:59 Dose: Not Given Documented By: HO.GRAZIC Non-Admin Reason: Patient Refused Nicotine Polacrilex (Nicotine Polacrilex 2 Mg Gum) 2 mg BUCCAL Q2H PRN PRN Reason: Nicotine Cravings Ondansetron HCl (Ondansetron Hcl 4 Mg/2 Ml Vial) 4 mg IVPUSH Q8H PRN PRN Reason: Nausea and Vomiting Pharmacy Consult (Consult Rx Perform Med Rec) 1 each MISCELLANE ONCE PRN PRN Reason: Consult order Pharmacy Consult (Consult Rx Vancomycin Dosing) 1 each MISCELLANE DAILY PRN PRN Reason: Consult order Quetiapine Fumarate (Quetiapine Fumarate 300 Mg Tablet) 300 mg PO BEDTIME [facility] Last Admin: 05/02/23 22:02 Dose: 300 mg Documented By: GERARDO Sodium Chloride (0.9 % Sodium Chloride Flush 3 Ml Syringe) 3 ml IVFLUSH QSHIFT [facility] Last Admin: 05/03/23 08:50 Dose: 3 ml Documented By: DARVINIC Labs 05/02/23 05:13 05/03/23 08:34 Labs: Laboratory Results - last 24 hr 05/03/23 05/03/23 08:34 08:34 Estim Creat Clear Calc 128.2 Estimated GFR > 60 Random Vancomycin 10.0 L Microbiology Microbiology Results: Microbiology 05/01/23 18:35 Blood Culture - Preliminary Blood - Venous No growth after 24 hours. 05/01/23 18:35 Blood Culture - Preliminary Blood - Venous No growth after 24 hours. Procedures Date of Service Date of Service: 05/03/23 Progress Note: A&P Assessment and plan (1) Insect bite of left leg: Status: Acute Plan Insect bite posterior left thigh probable brown recluse spider, s/p incision and drainage debridement. Patient reports feeling much improved and feels ready for discharge today. If he is discharged I requested he return to the office in approximately 1 week wound check. He should continue with dry dressings to the site daily. Time Spent With Patient Time: Total time managing care of this patient today ____ minutes. Quality Stroke Does the patient have a stroke diagnosis?: No VTE Prior VTE?: No VTE Risk Level:: Medical - moderate - high VTE Device Contraindication: Treatment Not Indicated VTE Drug Contraindication: N/A - Med Ordered
--- NOTE | 2023-05-03 13:53 | MHC.CM.PN ---
PT REPORTS HE LIVES WITH HIS AND THREE TEEN SONS HE IS INDEPENDENT WITH CARE AND WORKS PT HAS NO DME AND NO HOME SERVICES HE DECLINES TO COMPLETE A HCP PCP: DR TROY [facility] DCP: HOME TODAY WITH NO SERVICES VIA PRIVATE TRANSPORT
== END 2023-05-03 14:41 | disposition home or self-care (01) | DRG 383 ==
LOC: HO.ED 21:51 → HO.EDOVER 23:58 → HO.S3 05-02 10:28
PROVIDERS: Registered Nurse Emergency; Admitting Provider Student in an Organized Health Care Education/Training Program; Emergency Provider Emergency Medicine; PCP Student in an Organized Health Care Education/Training Program; Visit Provider Internal Medicine
DX: L03.116 Cellulitis of left lower limb (principal); I96 Gangrene, not elsewhere classified; T63.331S Toxic effect of venom of brown recluse spider, accidental (unintentional), sequela; F11.20 Opioid dependence, uncomplicated; F39 Unspecified mood [affective] disorder; Z79.899 Other long term (current) drug therapy
CPT/HCPCS: 36415; 73701; 80048; 80053; 80202; 82565; 83605; 85025; 87040; 99221; 99285; J1650; J2543; J3370; J3371; Q9967

== ENCOUNTER → 2023-05-01 21:22 | Outpatient (BNV) | payer OTHER, SELFPAY | PROVIDERS: Emergency Provider Emergency Medicine; Visit Provider Student in an Organized Health Care Education/Training Program | DX: S80.862A Insect bite (nonvenomous), left lower leg, initial encounter (principal); W57.XXXA Bitten or stung by nonvenomous insect and other nonvenomous arthropods, initial encounter | CPT/HCPCS: 99222; 99232; 99239 ==

== ENCOUNTER → 2023-05-01 22:32 | Outpatient (BNV) | payer OTHER, SELFPAY | PROVIDERS: Admitting Provider Student in an Organized Health Care Education/Training Program; Emergency Provider Emergency Medicine; Visit Provider Surgery | DX: S80.862A Insect bite (nonvenomous), left lower leg, initial encounter (principal); W57.XXXA Bitten or stung by nonvenomous insect and other nonvenomous arthropods, initial encounter | CPT/HCPCS: 10060; 99024; 99223 ==